=== PATIENT | female | born 1960 | race Caucasian/White ===

== ENCOUNTER 2020-09-22 07:16 | Inpatient (IN) | payer BC ==
[2020-09-22] VITALS (19 sets, daily range): BP systolic 106–146; BP diastolic 54–82
[~2020-09-22] VITALS: Ht 162.6 cm; Wt 79.6 kg
[~2020-09-22 07:16] MED LIST: CETI10TA15 PO; FERR-39 PO; IBUP1TAB11 PO; MALTODEXTRIN/FRUCTOSE 0.68 KCAL/ML LIQUID 296ML BOTTLE PO ONE; PARO30TA4 PO; albuterol 2.5 MG/3 ML nebule NEB ONE; ceFOXitin 2GM-NS 100mL ADDvant 100 ML IV ONE; famotidine 20mg tablet PO ONE; heparin, porcine 5000 units/ml vial SQ ONE; metroNIDAZOLE-Flagyl 500mg/NS 100ML IVPB IV ONE; ringers solution, lacted 1,000 ML IV SCH
[2020-09-22] MEDS ORDERED: meperidine/PF 25mg/ml syringe IV PRN ×2 (09:45)
[2020-09-22] MEDS ORDERED: ondansetron/PF 4mg/2ml inj IV PRN ×2 (09:45→16:30)
[2020-09-22] MEDS ORDERED: morphine 2 MG/ML inj. syringe IV PRN (09:45)
[2020-09-22] MEDS ORDERED: morphine 4 MG/ML inj SYRINge IV PRN (09:45)
[2020-09-22] MEDS ORDERED: ringers solution, lacted 1,000 ML IV SCH (09:45)
[2020-09-22] MEDS ORDERED: proCHLORperazine 10 MG/2 ml inj IV PRN (09:45)
[2020-09-22 10:13] LABS: ALBUMIN 2.9 G/DL (3.4-5.0); ALBUMIN/GLOBULIN RATIO 0.8 (1.1-1.5); ALKALINE PHOSPHATASE 112 IU/L (46-116); BLOOD UREA NITROGEN 14 MG/DL (7-18); BUN/CREATININE RATIO 16.1 (6.6-38.0); CALCIUM 8.2 MG/DL (8.5-10.1); CHLORIDE 105 MMOL/L (99-107); CREATININE 0.87 MG/DL (0.40-0.90); PRE OP ALT 26 U/L (30-65); PRE OP ANION GAP 10 (8-16); PRE OP AST 18 U/L (10-37); PRE OP BILIRUB, TOTAL 0.2 MG/DL (0.0-1.0); PRE OP GLUCOSE 119 MG/DL (70-104); PRE OP SODIUM 139 MMOL/L (135-145); TOTAL CARBON DIOXIDE 24.4 MMOL/L (24-32); TOTAL PROTEIN 6.6 G/DL (6.4-8.2); eGFR 66 ML/MIN
[2020-09-22 10:28] LABS: PRE OP POTASSIUM 3.2 MMOL/L (3.4-5.1)
[2020-09-22] MEDS ORDERED: aprepitant 40mg capsule PO ONE (10:41)
[2020-09-22 10:52] LABS: BASOPHILS # (AUTO) 0.1 X10'3 (0-0.2); BASOPHILS % (AUTO) 0.5 % (0-1); EOSINOPHILS # (AUTO) 0.1 X10'3 (0-0.9); EOSINOPHILS % (AUTO) 1.2 % (0-6); LYMPHOCYTES # (AUTO) 1.4 X10'3 (1.1-4.8); LYMPHOCYTES % (AUTO) 11.8 % (21-51); MEAN CORPUSCULAR HEMOGLOBIN 24.6 PG (27.0-31.0); MEAN CORPUSCULAR HGB CONC 31.4 g/dL (33.0-36.5); MEAN CORPUSCULAR VOLUME 78.4 FL (78-98); MONOCYTES # (AUTO) 0.9 X10'3 (0-0.9); MONOCYTES % (AUTO) 7.7 % (2-12); NEUTROPHILS # (AUTO) 9.1 X10'3 (1.8-7.7); NEUTROPHILS % (AUTO) 78.8 % (42-75); PRE OP HEMATOCRIT 32.4 % (35.0-45.0); PRE OP PLATELET COUNT 506 X10'3 (140-440); RED BLOOD COUNT 4.13 X10'6 (4.20-5.60); RED CELL DISTRIBUTION WIDTH 29.5 % (11.5-14.5)
[2020-09-22 10:54] LABS: PRE OP HEMOGLOBIN 10.2 g/dL (12.0-16.0)
[2020-09-22] MEDS ORDERED: famotidine 20mg tablet PO ONE (10:55)
[2020-09-22] MEDS ORDERED: albuterol 2.5 MG/3 ML nebule NEB ONE (10:55)
--- NOTE | 2020-09-22 11:00 | NUR ---
RECEIVED PHONE CALL FROM THE LAB ABOUT CRITICAL VALUE OF HGB 10.2 AND HCT 32.4 AT 1055. SURGEON IS AWARE OF THE BLEEDING FROM THE MASS IN COLON 2 WEEKS AGO AND THE CURRENT CONDITION OF THE PATIENT. HEPARIN 5000UNITS SUBQ ADMINISTERED TO THE PATIENT AT PAS UNIT AFTER CONFIRMING WITH DR. SKINNER THAT IT IS OK TO ADMINISTER. Addendum: 09/22/20 at 1321 by Renea Woods RN Amended: Links added.
[2020-09-22 11:03] LABS: PRE OP INR 1.1 INR; PRE OP PROTIME 11.2 SECONDS (9.0-12.0)
[2020-09-22 11:26] LABS: ANISOCYTOSIS 3+; HYPOCHROMASIA 1+; MICROCYTOSIS 1+; PLATELET ESTIMATE INCREASED
[2020-09-22 11:27] LABS: ELLIPTOCYTES FEW
[2020-09-22] MEDS ORDERED: BUPIVAcaine/PF 2.5 mg/ml (0.25%) 30ml vial ONE (11:36)
[2020-09-22] MEDS ORDERED: LIDOcaine 1% W/epiNEPHrine 1:100,000 20ml vial ONE (11:36)
[2020-09-22] MEDS ORDERED: povidone-iodine 10% topical ointment 28.4gm TP ONE (11:36)
[2020-09-22] MEDS ORDERED: midazolam 1 mg/ML 2ml injection ONE (11:45)
[2020-09-22] MEDS ORDERED: fentaNYL /PF 50mcg/ml 5ml ampule ONE (11:46)
[2020-09-22] MEDS ORDERED: rocuronium 10mg/ml inj IV ONE ×2 (11:46→12:05)
[2020-09-22] MEDS ORDERED: LIDOcaine 2% (20mg/ml) 5ml vial ONE (11:46)
[2020-09-22] MEDS ORDERED: propofol inj 20 ML IV ONE (11:46)
[2020-09-22] MEDS ORDERED: ondansetron/PF 4mg/2ml inj ONE (11:49)
[2020-09-22] MEDS ORDERED: sevoflurane 250ml liquid IH ONE (12:05)
[2020-09-22] MEDS ORDERED: dexamethasone sod phosphate 10mg/ml inj ONE (12:05)
[2020-09-22] MEDS ORDERED: INDOCYANINE GREEN 25 MG/10 ML VIAL IV ONE (13:28)
[2020-09-22] MEDS ORDERED: acetaminophen 1,000mg/100ml IV 100 ML IV ONE (15:58)
--- NOTE | 2020-09-22 16:16 | NUR ---
Received from OR via , accompanied by Anesthesiologist DR AGUIAR and report given by Anesthesiolgist. PT PRESENT WITH 20G RIGHT AC, ABD DRESSING DRY AND INTACT. VSS. Addendum: 09/22/20 at 1625 by Wilma Simmons RN, RN Amended: Links added.
[2020-09-22] MEDS ORDERED: HYDROmorphone inj. 0.5 MG/0.5 ML DISP.SYRIN IV PRN (16:30)
[2020-09-22] MEDS: meperidine/PF 25mg/ml syringe IV PRN ×2 (17:03→17:22)
--- NOTE | 2020-09-22 17:26 | NUR ---
PATIENT HAS MET ALL CRITERIA [facility] VSS. DRESSINGS INTACT. BED LOW, CALL LIGHT PRESENT AND 2 RAILS UP. PRIMITIVO BRITT PRESENT TO ACCEPT CARE OF PATIENT AND REPORT HAS BEEN CALLED. ALL QUESTIONS ANSWERED TO ACCEPTING RN. Addendum: 09/22/20 at 1742 by Wilma Green - PRIMITIVO RN Amended: Links added.
--- NOTE | 2020-09-22 18:41 | NUR ---
Problems reprioritized. Patient report given, questions answered & plan of care reviewed with Sabina LANGFORD.
--- NOTE | 2020-09-22 18:52 | NUR ---
Patient in room [facility]I 346. I have received report from Jamila LANGFORD and had the opportunity to ask questions and assume patient care.
[2020-09-22] MEDS: potassium CL 20mEq in D5-1/2NS 1,000 ML IV SCH (20:21)
[2020-09-22] MEDS: ibuprofen 200mg tablet PO SCH (22:02)
[2020-09-22] MEDS: diphenhydrAMINE 25mg capsule PO SCH (22:02)
[2020-09-22] MEDS: ferrous sulfate 325mg tablet PO SCH (22:02)
[2020-09-22] MEDS: heparin, porcine 5000 units/ml vial SQ SCH (22:03)
[2020-09-22] MEDS: HYDROcodone/acetaminophen 5mg/325mg tablet PO PRN (22:15)
[2020-09-23] VITALS: BP 116/52
[2020-09-23] MEDS ORDERED: ceFOXitin 1 GM/D5W 50mL IVPB 1,000 GM in normal saline 100ml IV soln 100 ML IV SCH ×2
[2020-09-23] MEDS: ceFOXitin inj 1,000 MG in normal saline 100ml IV soln 100 ML IV SCH ×2 (00:16→07:05)
[2020-09-23] MEDS: potassium CL 20mEq in D5-1/2NS 1,000 ML IV SCH ×2 (00:30→04:35)
[2020-09-23] MEDS: HYDROcodone/acetaminophen 5mg/325mg tablet PO PRN ×4 (02:40→20:01)
--- NOTE | 2020-09-23 06:28 | NUR ---
Problems reprioritized. Patient report given, questions answered & plan of care reviewed with Jamila LANGFORD.
--- NOTE | 2020-09-23 06:29 | NUR ---
Patient in room [facility]I 346. I have received report from Sabina LANGFORD and had the opportunity to ask questions and assume patient care.
[2020-09-23] MEDS: ferrous sulfate 325mg tablet PO SCH ×3 (07:05→20:47)
[2020-09-23] MEDS: heparin, porcine 5000 units/ml vial SQ SCH ×2 (07:06→20:47)
[2020-09-23] MEDS: cetirizine 10mg tablet PO SCH (07:07)
[2020-09-23] MEDS: PARoxetine 10mg tablet PO SCH (07:08)
[2020-09-23 07:31] LABS: ALBUMIN 2.4 G/DL (3.4-5.0); ANION GAP 11 (8-16); BLOOD UREA NITROGEN 8 MG/DL (7-18); BUN/CREATININE RATIO 9.1 (6.6-38.0); CALCIUM 8.1 MG/DL (8.5-10.1); CHLORIDE 105 MMOL/L (99-107); CREATININE 0.88 MG/DL (0.40-0.90); GLUCOSE 137 MG/DL (70-104); POTASSIUM 4.4 MMOL/L (3.5-5.1); SODIUM 139 MMOL/L (135-145); TOTAL CARBON DIOXIDE 22.6 MMOL/L (24-32); eGFR 65 ML/MIN
[2020-09-23 07:40] LABS: BASOPHILS % (AUTO) 0.1 % (0-1); EOSINOPHILS % (AUTO) 0 % (0-6); HEMATOCRIT 32.6 % (35.0-45.0); HEMOGLOBIN 9.9 g/dl (12.0-16.0); LYMPHOCYTES # (AUTO) 0.9 X10'3 (1.1-4.8); MEAN CORPUSCULAR HEMOGLOBIN 24.7 PG (27.0-31.0); MEAN CORPUSCULAR HGB CONC 30.4 g/dL (33.0-36.5); MEAN CORPUSCULAR VOLUME 81.5 FL (78-98); MEAN PLATELET VOLUME 7.3 FL (7.4-10.4); MONOCYTES # (AUTO) 0.6 X10'3 (0-0.9); MONOCYTES % (AUTO) 4.9 % (2-12); NEUTROPHILS # (AUTO) 11.2 X10'3 (1.8-7.7); PLATELET COUNT 468 X10'3 (140-440); RED CELL DISTRIBUTION WIDTH 29.2 % (11.5-14.5); WHITE BLOOD COUNT 12.7 X10'3 (4.5-11.0)
[2020-09-23 08:00] VITALS: BP 121/60
[2020-09-23] MEDS ORDERED: PARoxetine 30mg tablet PO SCH (08:00)
[2020-09-23 09:40] LABS: ANISOCYTOSIS 3+; PLATELET ESTIMATE INCREASED
[2020-09-23 09:41] LABS: ELLIPTOCYTES FEW; TEAR DROP CELLS FEW
[2020-09-23] MEDS: metroNIDAZOLE-Flagyl 500mg/NS 100 ML IV SCH ×2 (11:04→20:01)
[2020-09-23 12:00] VITALS: BP 98/50
--- NOTE | 2020-09-23 18:29 | NUR ---
Problems reprioritized. Patient report given, questions answered & plan of care reviewed with Sabina LANGFORD .
--- NOTE | 2020-09-23 18:54 | NUR ---
Patient in room [facility]I 346. I have received report from Jamila LANGFORD and had the opportunity to ask questions and assume patient care.
[2020-09-23 20:00] VITALS: BP 112/55
[2020-09-23] MEDS: diphenhydrAMINE 25mg capsule PO SCH (20:47)
[2020-09-23] MEDS: ibuprofen 200mg tablet PO SCH (20:47)
[2020-09-24] VITALS: BP 114/60
[2020-09-24] MEDS: metroNIDAZOLE-Flagyl 500mg/NS 100 ML IV SCH ×3 (00:13→16:10)
[2020-09-24] MEDS: potassium CL 20mEq in D5-1/2NS 1,000 ML IV SCH (00:16)
--- NOTE | 2020-09-24 06:02 | NUR ---
Problems reprioritized. Patient report given, questions answered & plan of care reviewed with Jamila LANGFORD.
--- NOTE | 2020-09-24 06:17 | NUR ---
Patient in room HALI 356. I have received report from Kortney LANGFORD and had the opportunity to ask questions and assume patient care.
[2020-09-24 07:55] LABS: BASOPHILS % (AUTO) 0.3 % (0-1); EOSINOPHILS # (AUTO) 0.1 X10'3 (0-0.9); EOSINOPHILS % (AUTO) 1.1 % (0-6); HEMATOCRIT 30.1 % (35.0-45.0); HEMOGLOBIN 9.4 g/dl (12.0-16.0); LYMPHOCYTES # (AUTO) 1.6 X10'3 (1.1-4.8); LYMPHOCYTES % (AUTO) 20.7 % (21-51); MEAN CORPUSCULAR HEMOGLOBIN 25.1 PG (27.0-31.0); MEAN CORPUSCULAR HGB CONC 31.1 g/dL (33.0-36.5); MEAN CORPUSCULAR VOLUME 80.8 FL (78-98); MEAN PLATELET VOLUME 7.4 FL (7.4-10.4); MONOCYTES # (AUTO) 0.4 X10'3 (0-0.9); MONOCYTES % (AUTO) 5.1 % (2-12); NEUTROPHILS # (AUTO) 5.5 X10'3 (1.8-7.7); NEUTROPHILS % (AUTO) 72.8 % (42-75); PLATELET COUNT 429 X10'3 (140-440); RED BLOOD COUNT 3.73 X10'6 (4.20-5.60); WHITE BLOOD COUNT 7.5 X10'3 (4.5-11.0)
[2020-09-24 08:14] LABS: ALBUMIN 2.3 G/DL (3.4-5.0); ANION GAP 10 (8-16); BLOOD UREA NITROGEN 7 MG/DL (7-18); BUN/CREATININE RATIO 9.6 (6.6-38.0); CHLORIDE 108 MMOL/L (99-107); CREATININE 0.73 MG/DL (0.40-0.90); GLUCOSE 96 MG/DL (70-104); POTASSIUM 4.2 MMOL/L (3.5-5.1); SODIUM 144 MMOL/L (135-145); TOTAL CARBON DIOXIDE 26.4 MMOL/L (24-32); eGFR 81 ML/MIN
[2020-09-24] MEDS: cetirizine 10mg tablet PO SCH (08:36)
[2020-09-24] MEDS: ferrous sulfate 325mg tablet PO SCH ×3 (08:36→21:22)
[2020-09-24] MEDS: heparin, porcine 5000 units/ml vial SQ SCH ×2 (08:36→19:39)
[2020-09-24] MEDS: PARoxetine 10mg tablet PO SCH (08:37)
[2020-09-24] MEDS: HYDROcodone/acetaminophen 5mg/325mg tablet PO PRN ×2 (11:14→16:26)
[2020-09-24 12:00] VITALS: BP 114/58
[2020-09-24] MEDS ORDERED: sod chloride 0.9% 10ml flush syringe IV SCH (16:00)
--- NOTE | 2020-09-24 17:24 | NUR ---
Patient and Mother educated on wound care changes and how to perform them. Home health was set up and will contact the patient. Patient was instructed to call wound care to set up an appointment tomorrow. Daily from case management said that she had attempted to call wound care to set up an appointment and had not heard back yet. She was educated on medications, follow-up care, and worsening symptoms. Patient had no IV to remove. Patient is on Zyvox and stated she was able to pick it up [employer] for next dose at 1999. She stated she had all belongings and was taken down stairs to ride by [facility]. Addendum: 09/24/20 at 1733 by Jamila Galvan RN Wrong patient
--- NOTE | 2020-09-24 18:12 | NUR ---
Problems reprioritized. Patient report given, questions answered & plan of care reviewed with Kortney LANGFORD. Addendum: 09/24/20 at 1812 by Jamila Galvan RN Allegra Sheets
--- NOTE | 2020-09-24 18:30 | NUR ---
Patient in room HALI 356. I have received report from BALWINDER LANGFORD and had the opportunity to ask questions and assume patient care.
[2020-09-24 20:00] VITALS: BP 130/66
[2020-09-24] MEDS: ibuprofen 200mg tablet PO SCH (21:22)
[2020-09-24] MEDS: diphenhydrAMINE 25mg capsule PO SCH (21:22)
[2020-09-25] VITALS (22 sets, daily range): BP systolic 0–189; BP diastolic 0–75
[2020-09-25] MEDS: HYDROcodone/acetaminophen 5mg/325mg tablet PO PRN (00:08)
[2020-09-25] MEDS: metroNIDAZOLE-Flagyl 500mg/NS 100 ML IV SCH (00:10)
--- NOTE | 2020-09-25 04:00 | NUR ---
PATIENT ASSISTED TO THE BATHROOM TO URINATE AND BACK TO BED FEELING DIZZY AND NAUSEOUS. REPOSITIONED IN BED AND TRIED TO TAKE VITAL SIGNS BUT GOT UP AND RAN TO THE BATHROOM AND URINATED AND HAD BOWEL MOVEMENT WHICH IS WATERY. VITAL SIGNS TAKEN WHILE IN THE BATHROOM BP 123/70 HR 101 RR 20 SAT 91 @RA.
--- NOTE | 2020-09-25 04:20 | NUR ---
PATIENT ASSISTED BACK TO HER BED AND STILL FELT DIZZY AND COLD CLAMMY. VITAL SIGNS TAKEN BP 70/42 HR 138 RR 22 SAT 91 @3L. RAPID RESPONSE CALLED. THEN CALLED DR. SKINNER AND WAS INFORMED ABOUT THE PATIENT WITH ORDER TO BOLUS 500ML NS AND ORDERED STAT LABS. RAPID RESPONSE TEAM CAME, NS 500ML BOLUS STARTED. LABS DRAWN BY TUNNEL KILN FIRER, EKG DONE, RESPIRATORY THERAPIST TRYING TO DRAW ABG.
[2020-09-25] MEDS ORDERED: normal saline 500ml IV soln 500 ML IV ONE (04:30)
[2020-09-25 04:50] LABS: BASOPHILS # (AUTO) 0.1 X10'3 (0-0.2); BASOPHILS % (AUTO) 0.4 % (0-1); EOSINOPHILS # (AUTO) 0.1 X10'3 (0-0.9); EOSINOPHILS % (AUTO) 1.1 % (0-6); HEMATOCRIT 35.9 % (35.0-45.0); LYMPHOCYTES # (AUTO) 3.6 X10'3 (1.1-4.8); LYMPHOCYTES % (AUTO) 27.1 % (21-51); MEAN CORPUSCULAR HEMOGLOBIN 24.9 PG (27.0-31.0); MEAN CORPUSCULAR HGB CONC 30.6 g/dL (33.0-36.5); MEAN CORPUSCULAR VOLUME 81.5 FL (78-98); MEAN PLATELET VOLUME 7.1 FL (7.4-10.4); MONOCYTES # (AUTO) 0.6 X10'3 (0-0.9); MONOCYTES % (AUTO) 4.4 % (2-12); PLATELET COUNT 528 X10'3 (140-440); RED CELL DISTRIBUTION WIDTH 29.9 % (11.5-14.5); WHITE BLOOD COUNT 13.4 X10'3 (4.5-11.0)
--- NOTE | 2020-09-25 05:00 | NUR ---
PATIENT REPORT GIVEN TO ELMA LANGFORD, PATIENT FOR TRANSFER TO CICU.
[2020-09-25 05:09] LABS: ALANINE AMINOTRANSFERASE 35 U/L (12-78); ALBUMIN 2.5 G/DL (3.4-5.0); ALBUMIN/GLOBULIN RATIO 0.7 (1.1-1.5); ALKALINE PHOSPHATASE 117 IU/L (46-116); ANION GAP 15 (8-16); ASPARTATE AMINO TRANSFERASE 31 U/L (10-37); BILIRUBIN,TOTAL 0.2 MG/DL (0.1-1.0); BLOOD UREA NITROGEN 8 MG/DL (7-18); BUN/CREATININE RATIO 8.4 (6.6-38.0); CALCIUM 8.2 MG/DL (8.5-10.1); CHLORIDE 106 MMOL/L (99-107); CREATININE 0.95 MG/DL (0.40-0.90); GLUCOSE 239 MG/DL (70-104); POTASSIUM 4.3 MMOL/L (3.5-5.1); SODIUM 140 MMOL/L (135-145); TOTAL CARBON DIOXIDE 18.9 MMOL/L (24-32); TOTAL PROTEIN 6.3 G/DL (6.4-8.2); eGFR 60 ML/MIN
[2020-09-25] MEDS ORDERED: heparin 25,000 UNIT/250ml bag 250 ML IV SCH (05:10)
[2020-09-25] MEDS ORDERED: heparin 10,000 units/1 ML INJ IV ONE (05:10)
[2020-09-25] MEDS ORDERED: heparin 10,000 units/1 ML INJ IV PRN (05:10)
[2020-09-25 05:12] LABS: C-REACTIVE PROTEIN 6.22 MG/DL (0.0-0.5); TROPONIN I 0.06 NG/ML (0.0-0.05)
[2020-09-25] MEDS ORDERED: NORepinephrine 8mg/ 250ml NS 250 ML IV ONE ×3 (05:15→08:10)
--- NOTE | 2020-09-25 05:15 | NUR ---
PATIENT WAS TRANSFERRED TO CICU WITH RAPID RESPONSE TEAM.
[2020-09-25 05:16] LABS: PLATELET ESTIMATE INCREASED
[2020-09-25 05:18] LABS: SPHEROCYTES 1+
[2020-09-25 05:19] LABS: ANISOCYTOSIS 2+; BURR CELLS 1+; MICROCYTOSIS 1+; POIKILOCYTOSIS 2+
[2020-09-25] MEDS ORDERED: alteplase 100MG inj. 100 ML IV ONE (05:25)
[2020-09-25] MEDS ORDERED: epiNEPHrine inj 5 MG in normal saline 250ml IV soln 245 ML IV SCH (05:25)
--- NOTE | 2020-09-25 06:10 | NUR ---
Problems reprioritized. Patient report given, questions answered & plan of care reviewed with Alexandra LANGFORD.
[2020-09-25] MEDS ORDERED: DOBUTamine-DoBUTrex 500mg/D5W 250 ML IV ONE (06:23)
[2020-09-25] MEDS ORDERED: DOBUTamine-DoBUTrex 500mg/D5W 250 ML IV PRN (06:25)
[2020-09-25 06:28] LABS: BASOPHILS % (AUTO) 0.2 % (0-1); EOSINOPHILS # (AUTO) 0.1 X10'3 (0-0.9); EOSINOPHILS % (AUTO) 0.9 % (0-6); HEMOGLOBIN 8.1 g/dl (12.0-16.0); LYMPHOCYTES # (AUTO) 4.4 X10'3 (1.1-4.8); LYMPHOCYTES % (AUTO) 37.3 % (21-51); MEAN PLATELET VOLUME 7.1 FL (7.4-10.4); MONOCYTES # (AUTO) 0.4 X10'3 (0-0.9); MONOCYTES % (AUTO) 3.3 % (2-12); NEUTROPHILS # (AUTO) 6.9 X10'3 (1.8-7.7); NEUTROPHILS % (AUTO) 58.3 % (42-75); PLATELET COUNT 243 X10'3 (140-440); RED BLOOD COUNT 3.28 X10'6 (4.20-5.60); RED CELL DISTRIBUTION WIDTH 30.3 % (11.5-14.5); WHITE BLOOD COUNT 11.8 X10'3 (4.5-11.0)
--- NOTE | 2020-09-25 06:30 | NUR ---
0515 -Patient in room CICU 2010. I have received report from Allegra Dinh RN and had the opportunity to ask questions and assume patient care. Pt came down on 4L NC as a rapid response. Pt mottled and clammy. Has been having green colored liquid stool during the rapid response. She is awake and speaking of impending doom. She says she feels as she is going to suffocate. SpO2 in 90s. RR 30s. BP difficult to obtain. 0524- Pt became unresponsive, pupils dilated to 6 and HR dropped to 60's. Code called and compressions started. RT at bedside bagging. See Code Blue Sheet.
--- NOTE | 2020-09-25 06:30 | NUR ---
Received report. Patient s/p code blue x 2. Pupils 10mm and non-responsive. Extremities flaccid with no response to stimuli. Levophed & Epi infusing for BP maintenance. Drs. Ro & Huseyin at bedside.
[2020-09-25] MEDS ORDERED: sodium bicarbonate (8.4%) 1 mEq/ml syringe IV STA (06:36)
[2020-09-25 06:43] LABS: ALANINE AMINOTRANSFERASE 99 U/L (12-78); ALBUMIN 1.6 G/DL (3.4-5.0); ALBUMIN/GLOBULIN RATIO 0.6 (1.1-1.5); ALKALINE PHOSPHATASE 114 IU/L (46-116); ANION GAP 19 (8-16); ASPARTATE AMINO TRANSFERASE 151 U/L (10-37); BILIRUBIN,TOTAL 0.1 MG/DL (0.1-1.0); BLOOD UREA NITROGEN 9 MG/DL (7-18); BUN/CREATININE RATIO 7.8 (6.6-38.0); CALCIUM 6.8 MG/DL (8.5-10.1); CHLORIDE 110 MMOL/L (99-107); CREATININE 1.16 MG/DL (0.40-0.90); GLUCOSE 430 MG/DL (70-104); SODIUM 143 MMOL/L (135-145); TOTAL PROTEIN 4.4 G/DL (6.4-8.2); eGFR 47 ML/MIN
[2020-09-25 06:44] LABS: TOTAL CARBON DIOXIDE 14.3 MMOL/L (24-32)
[2020-09-25 06:45] LABS: HEMATOCRIT 25.7 % (35.0-45.0)
[2020-09-25 06:46] LABS: MEAN CORPUSCULAR HGB CONC 31.7 g/dL (33.0-36.5); MEAN CORPUSCULAR VOLUME 81.9 FL (78-98)
--- NOTE | 2020-09-25 06:52 | NUR ---
CALLED [facility] PATIENT'S SAND TESTER A FRIEND, AND WAS INFORMED THAT PATIENT WAS TRANSFERRED TO CICU AND ASKED IF THERE IS A FAMILY OR NEXT OF KIN TO THE PATIENT AND SAID SHE HAS NO FAMILY EXCEPT FOR A COUSIN THAT SHE DON'T KNOW THE NUMBER BUT SHE WILL TRY TO FIND OUT AND [facility] FOR THE [facility]FORMATION.
[2020-09-25] MEDS ORDERED: vancomycin/NS 1 GM ADD-VANTAGE 250 ML IV SCH (07:00)
--- NOTE | 2020-09-25 07:00 | NUR ---
Bello giraldo called at 0525; pt intubated immediately by Dr. Ro after 20mg etomidate and 100mg cj given; intubated quickly w/o any problems; 2nd liter fluid bolus infusing; telemedicine MD Dr. Hill on screen assisting w/code. TPA 100mg IV given as per Dr. Hill's orders; levophed started for low BP, difficult to get NBP but femoral pulse strong and matching monitor; levo titrated up to max but continue to have difficult time getting BP reading; Dr. Ro placed L femoral arterial line w/SBPs in 80s; quad lumen CVL placed after second attempt in R groin; epi gtt started as per Dr. Hill's orders; stat labs sent; echo and CXR done. Dr. Carlson at bedside; Report given to day shift.
[2020-09-25] MEDS ORDERED: Neutra Phos packet PO PRN (07:05)
[2020-09-25] MEDS ORDERED: magnesium 4gm in 100ml NS 100 ML IV PRN (07:05)
[2020-09-25] MEDS ORDERED: sodium phosphate inj. 15 MMOL in dextrose 5%-water 250 ML IV PRN (07:05)
[2020-09-25] MEDS ORDERED: potassium Cl 20 mEq SR tablet PO PRN ×2 (07:05)
[2020-09-25] MEDS ORDERED: LIDOcaine 2% 10ml TOPICAL JELLY (Urojet) TP ONE (07:05)
[2020-09-25] MEDS ORDERED: sodium bicarbonate (8.4%) inj. 150 MEQ in dextrose 5%-water 1,000 ML IV SCH (07:05)
[2020-09-25] MEDS ORDERED: magnesium Cl slow-release 64mg tablet PO PRN (07:05)
[2020-09-25] MEDS ORDERED: magnesium 2GM in 50ml NS 50 ML IV PRN (07:05)
[2020-09-25] MEDS ORDERED: potassium Cl 40MEQ/1/2NS 520ml 520 ML IV PRN ×2 (07:05)
[2020-09-25] MEDS ORDERED: sodium phosphate inj. 30 MMOL in dextrose 5%-water 250 ML IV PRN (07:05)
[2020-09-25 07:07] LABS: OXYGEN SATURATION (MIXED VEN) 17.3 % (60-80); PO2 MIXED VENOUS (TEMP COR) 28.2 mmHg (35-46)
[2020-09-25 07:33] LABS: ANISOCYTOSIS 3+; PLATELET ESTIMATE NORMAL; TOTAL CELLS COUNTED 100
[2020-09-25 07:34] LABS: BURR CELLS 1+
--- NOTE | 2020-09-25 07:55 | NUR ---
Patient suddenly began to drop her BP despite pressors infusing. Drs. Fontanez and Jayjay notified and at bedside. See code blue sheet for details.
[2020-09-25] MEDS ORDERED: vasopressin 40 UNIT in NS 40ml IV DRIP IV SCH ×2 (07:57→08:00)
[2020-09-25] MEDS ORDERED: epiNEPHrine 0.1mg/ml 10ml syringe ONE (08:00)
[2020-09-25] MEDS ORDERED: pantoprazole 40 MG vial IV SCH (08:00)
[2020-09-25] MEDS ORDERED: sodium bicarbonate (8.4%) 1 mEq/ml syringe ONE (08:00)
[2020-09-25] MEDS ORDERED: atropine 0.1mg/ml 10ml syringe ONE (08:00)
[2020-09-25] MEDS ORDERED: piperacillin/tazo 3.375gm/50ml 50 ML IV SCH (08:00)
[2020-09-25] MEDS ORDERED: calcium chloride 100 MG/1 ML inj IV ONE (08:00)
[2020-09-25] MEDS ORDERED: mineral oil/petrolatum ophthal oint EACHEYE SCH (08:00)
--- NOTE | 2020-09-25 08:53 | NUR ---
Patient in asystole. Dr. Fontanez pronounced patient. Patient's friend, Saira, notified of .
[2020-09-26] MEDS ORDERED: VANCOMYCIN LEVEL IV ONE (18:30)
[2020-09-29 09:20] LABS: PATIENT TEMPERATURE 36.7
[2020-09-29 09:21] LABS: RESPIRATORY RATE 16 b/min
[2020-09-29 09:22] LABS: ABG PCO2 (T) 103.2 mmHg (32.0-45.0); ABG PO2 (T) 116.8 mmHg (75.0-100.0)
[2020-09-29 09:24] LABS: FCOHb 0.3 % (0.0-3.9); FMetHb 0.4 % (0.0-1.5); FO2Hb 89.7 % (94-97); TOTAL HEMOGLOBIN 9.7 G/dl (12.0-16.0)
[2020-09-29 09:25] LABS: ABG OXYGEN SATURATION 90.3 % (94-97)
[2020-09-29 11:46] LABS: ISTAT CREATININE 1.2 mg/dL (0.6-1.1); ISTAT IONIZED CALCIUM 1.21 mmol/L (1.03-1.32); POC BUN/CREATININE RATIO 7.5 (6.6-38.0)
[2020-09-29 11:47] LABS: ISTAT HGB 7.8 g/dl (12.0-16.0)
[2020-09-29 11:50] LABS: ISTAT K 5.1 mmol/L (3.5-5.1)
== END 2020-09-25 13:15 | DRG 329 ==
LOC: PAS IN 07:16 → UNDOADMIN 07:16 → SUR 3N 16:00 → PAS IN 16:00 → SUR 3N 16:29 → CICU 2S 09-25 05:24
PROVIDERS: ADMIT Colon & Rectal Surgery; ATTEND Colon & Rectal Surgery
PROC: 0FB14ZZ Excision of Right Lobe Liver, Percutaneous Endoscopic Approach (ICD-10-PCS; 2020-09-22)
PROC: 8E0W4CZ Robotic Assisted Procedure of Trunk Region, Percutaneous Endoscopic Approach (ICD-10-PCS; 2020-09-22)
PROC: 0DTF4ZZ Resection of Right Large Intestine, Percutaneous Endoscopic Approach (ICD-10-PCS; principal; 2020-09-22 12:05)
PROC: 5A1935Z Respiratory Ventilation, Less than 24 Consecutive Hours (ICD-10-PCS; 2020-09-25)
PROC: 0BH17EZ Insertion of Endotracheal Airway into Trachea, Via Natural or Artificial Opening (ICD-10-PCS; 2020-09-25)
PROC: 5A12012 Performance of Cardiac Output, Single, Manual (ICD-10-PCS; 2020-09-25)
PROC: 3E03317 Introduction of Other Thrombolytic into Peripheral Vein, Percutaneous Approach (ICD-10-PCS; 2020-09-25)
PROC: 06HY33Z Insertion of Infusion Device into Lower Vein, Percutaneous Approach (ICD-10-PCS; 2020-09-25)
PROC: 04HY32Z Insertion of Monitoring Device into Lower Artery, Percutaneous Approach (ICD-10-PCS; 2020-09-25)
PROC: 4A133B1 Monitoring of Arterial Pressure, Peripheral, Percutaneous Approach (ICD-10-PCS; 2020-09-25)
PROC: 4A133J1 Monitoring of Arterial Pulse, Peripheral, Percutaneous Approach (ICD-10-PCS; 2020-09-25)
PROC: B44GZZZ Ultrasonography of Left Lower Extremity Arteries (ICD-10-PCS; 2020-09-25)
PROC: 5A2204Z Restoration of Cardiac Rhythm, Single (ICD-10-PCS; 2020-09-25)
DX: C18.2 Malignant neoplasm of ascending colon (principal); I26.99 Other pulmonary embolism without acute cor pulmonale; J96.02 Acute respiratory failure with hypercapnia; E87.4 Mixed disorder of acid-base balance; I48.92 Unspecified atrial flutter; E87.70 Fluid overload, unspecified; H57.04 Mydriasis; I27.20 Pulmonary hypertension, unspecified; Z60.2 Problems related to living alone; I45.10 Unspecified right bundle-branch block; I46.9 Cardiac arrest, cause unspecified; I48.91 Unspecified atrial fibrillation; Z66 Do not resuscitate; I95.9 Hypotension, unspecified; Z79.899 Other long term (current) drug therapy
CPT/HCPCS: 92950; 93306; Z7506; Z7508; 36415; 36600; 71045; 80047; 80048; 80053; 82330; 82803; 82810; 82948; 83605; 84484; 85007; 85008; 85018; 85025; 85384; 85610; 85730; 86140; 86885; 86900; 86901; 87081; 93005; 94002; 94799; A4215; A4618; A6258; A6402; A7000; C1758; G0378; J0131; J0171; J0461; J0694; J1100; J1250; J1644; J2001; J2175; J2250; J2405; J2704; J2997; J3010; J3480; J3490; J7030; J7040; J7050; J7120; J8501; Q0163